=== PATIENT | male | born 1955 | race Caucasian/White ===

== ENCOUNTER 2017-07-27 15:23 | Observation (INO) | payer BC ==
[2017-07-27] MEDS ORDERED: HYDROmorphone 1 MG/ML Syringe IVPUSH ONE ×2 (15:40→17:59)
[2017-07-27] MEDS ORDERED: Ondansetron 4 MG/2 ML SDV IVPUSH ONE (15:40)
--- NOTE | 2017-07-27 15:41 | EDM.PDOC ---
<Sherry Fuller - Last Filed: 07/27/17 18:02> ED HPI GENERAL MEDICAL PROBLEM - General Chief Complaint: Flank Pain Stated Complaint: RT SIDE/BACK PAIN Time Seen by Provider: 07/27/17 15:41 Source of Information: Reports: Patient, Family History Limitations: Reports: No Limitations - History of Present Illness INITIAL COMMENTS - FREE TEXT/NARRATIVE: Pt arrived with severe rt flank pain. He was nauseated. This started yesterday afternoon. He has been very uncomfortable off and on since that time. Onset: Other ( started yesterday. ) Duration: Hour(s):, Getting Worse Location: Reports: Abdomen Quality: Reports: Sharp Associated Symptoms: Reports: Nausea/Vomiting, Other (Pt feels like something is swollen in the flank area. ) Right Flank Pain Score (Numeric/FACES): 10 - Related Data Allergies Allergy/AdvReac Type Severity Reaction Status Date / Time No Known Allergies Allergy Verified 04/13/13 22:25 Home Meds: Home Meds Allopurinol [Zyloprim] 300 mg PO DAILY 08/02/14 [History] Lisinopril 20 mg PO DAILY 07/27/17 [History] Naproxen 500 mg PO BID 07/27/17 [History] tiZANidine [Zanaflex] 4 mg PO DAILY 07/27/17 [History] Social & Family History - Tobacco Use Smoking Status *Q: Never Smoker Years of Tobacco use: 20 Second Hand Smoke Exposure: No - Alcohol Use Days Per Week of Alcohol Use: 0 - Recreational Drug Use Recreational Drug Use: No ED ROS GENERAL - Review of Systems Review Of Systems: See Below Constitutional: Reports: Diaphoresis, Decreased Appetite HEENT: Reports: No Symptoms Respiratory: Reports: No Symptoms Cardiovascular: Reports: No Symptoms Endocrine: Reports: No Symptoms GI/Abdominal: Reports: Abdominal Pain, Nausea : Reports: No Symptoms Musculoskeletal: Reports: No Symptoms Skin: Reports: No Symptoms ED EXAM, GI/ABD - Physical Exam Exam: See Below Text/Narrative:: Pt arrived with severe pain in the rt flank area. He was nauseated but had not vomited. This started yesterday afternoon. He has no chest pain. Exam Limited By: No Limitations General Appearance: Alert, Severe Distress, Other (pupils are equal and reactive. ) Ears: Normal TMs Nose: Normal Inspection Throat/Mouth: Normal Inspection Head: Atraumatic Neck: Normal Inspection Respiratory/Chest: No Respiratory Distress Cardiovascular: Regular Rate, Rhythm GI/Abdominal Exam: Other (pt does not have sig tenderness in the abdoman. ) (Male) Exam: Deferred Rectal (Males) Exam: Deferred Back Exam: Normal Inspection Extremities: Normal Inspection Neurological: Alert, Oriented, Normal Cognition Psychiatric: Normal Affect Course - Vital Signs Last Recorded V/S: Last Vital Signs Temp 96.2 F 07/27/17 15:37 Pulse 70 07/27/17 15:37 Resp 20 07/27/17 15:37 BP 101/65 07/27/17 15:37 Pulse Ox 96 07/27/17 15:37 - Orders/Labs/Meds Orders: Active Orders 24 hr Category Date Time Status Patient Status [ADT] Routine ADT 07/27/17 19:30 Active Height and Weight [RC] DAILY Care 07/27/17 19:30 Active Intake and Output [RC] PER UNIT ROUTINE Care 07/27/17 19:32 Active Up ad [place]ana [RC] ASDIRECTED Care 07/27/17 19:30 Active Vital Signs [RC] Q4H Care 07/27/17 19:30 Active Nothing per Oral After Midnight Diet [DIET] Diet 07/27/17 Breakfast Active Abdomen Ltd [US] Stat Exams 07/27/17 17:05 Taken Abdomen Pelvis wo Cont [CT] Stat Exams 07/27/17 16:08 Taken Cholescintigraphy [NM] Stat Exams 07/27/17 19:32 Ordered UA W/MICROSCOPIC [URIN] Urgent Lab 07/27/17 17:45 Ordered URIC ACID [CHEM] Stat Lab 07/27/17 15:51 Ordered Allopurinol [Zyloprim] Med 07/28/17 09:00 Ordered 300 mg PO DAILY Lisinopril [Prinivil] Med 07/28/17 09:00 Ordered 20 mg PO DAILY Naproxen [Naproxen] Med 07/27/17 21:00 Ordered 500 mg PO BID Sodium Chloride 0.9% [Normal Saline] 1,000 ml Med 07/27/17 15:45 Active IV ASDIRECTED Sodium Chloride 0.9% [Normal Saline] 1,000 ml Med 07/27/17 17:30 Active IV ASDIRECTED tiZANidine [Zanaflex] Med 07/28/17 09:00 Ordered 4 mg PO DAILY Resuscitation Status Routine Resus Stat 07/27/17 19:30 Ordered Medication Orders Allopurinol (Zyloprim) 300 mg PO DAILY [facility] Sodium Chloride (Normal Saline) 1,000 mls @ 999 mls/hr IV ASDIRECTED [facility] Last Admin: 07/27/17 15:50 Dose: 999 mls/hr Sodium Chloride (Normal Saline) 1,000 mls @ 999 mls/hr IV ASDIRECTED [facility] Last Admin: 07/27/17 17:46 Dose: 999 mls/hr Lisinopril (Prinivil) 20 mg PO DAILY [facility] Non-Formulary Medication (Naproxen [Naproxen]) 500 mg PO BID [facility] Tizanidine HCl (Zanaflex) 4 mg PO DAILY [facility] Labs: Laboratory Tests 07/27/17 07/27/17 07/27/17 Range/Units 15:50 15:51 15:51 WBC 10.9 (4.5-11.0) K/uL RBC 4.47 (4.30-5.90) M/uL Hgb 13.1 (12.0-15.0) g/dL Hct 38.7 L (40.0-54.0) % MCV 87 (80-98) fL MCH 29 (27-31) pg MCHC 34 (32-36) % Plt Count 218 (150-400) K/uL Neut % (Auto) 62 (36-66) % Lymph % (Auto) 28 (24-44) % [place] % (Auto) 9 H (2-6) % Eos % (Auto) 1 L (2-4) % Baso % (Auto) 0 (0-1) % Sodium 142 (140-148) mmol/L Potassium 3.5 L (3.6-5.2) mmol/L Chloride 106 (100-108) mmol/L Carbon Dioxide 26 (21-32) mmol/L Anion Gap 13.5 (5.0-14.0) mmol/L BUN 11 (7-18) mg/dL Creatinine 1.0 (0.8-1.3) mg/dL Est Cr Clr Drug Dosing 80.10 mL/min Estimated GFR (MDRD) > 60 (>60) Glucose 138 H (74-106) mg/dL Uric Acid (3.5-7.2) mg/dL Calcium 8.7 (8.5-10.1) mg/dL Total Bilirubin 0.5 D (0.2-1.0) mg/dL AST 27 D (15-37) U/L ALT 31 (12-78) U/L Alkaline Phosphatase 76 (46-116) U/L Troponin I (0.000-0.056) ng/mL C-Reactive Protein (0.0-0.3) mg/dL Total Protein 6.8 (6.4-8.2) g/dL Albumin 3.6 (3.4-5.0) g/dL Globulin 3.2 (2.3-3.5) g/dL Albumin/Globulin Ratio 1.1 L (1.2-2.2) Lipase 191 (73-393) U/L Urine Color Urine Appearance Urine pH (4.5-8.0) Ur Specific [place] (1.008-1.030) Urine Protein (NEGATIVE) mg/dL Urine Glucose (UA) (NEGATIVE) mg/dL Urine Ketones (NEGATIVE) mg/dL Urine Occult Blood (NEGATIVE) Urine Nitrite (NEGAITVE) Urine Bilirubin (NEGATIVE) Urine Urobilinogen (NORMAL) mg/dL Ur Leukocyte Esterase (NEGATIVE) Urine RBC (0-5) Urine WBC (0-5) Ur Epithelial Cells Amorphous Sediment Urine Bacteria Urine Mucus Urine Other 07/27/17 07/27/17 07/27/17 Range/Units 15:51 17:20 17:45 WBC (4.5-11.0) K/uL RBC (4.30-5.90) M/uL Hgb (12.0-15.0) g/dL Hct (40.0-54.0) % MCV (80-98) fL MCH (27-31) pg MCHC (32-36) % Plt Count (150-400) K/uL Neut % (Auto) (36-66) % Lymph % (Auto) (24-44) % [place] % (Auto) (2-6) % Eos % (Auto) (2-4) % Baso % (Auto) (0-1) % Sodium (140-148) mmol/L Potassium (3.6-5.2) mmol/L Chloride (100-108) mmol/L Carbon Dioxide (21-32) mmol/L Anion Gap (5.0-14.0) mmol/L BUN (7-18) mg/dL Creatinine (0.8-1.3) mg/dL Est Cr Clr Drug Dosing mL/min Estimated GFR (MDRD) (>60) Glucose (74-106) mg/dL Uric Acid 4.2 (3.5-7.2) mg/dL Calcium (8.5-10.1) mg/dL Total Bilirubin (0.2-1.0) mg/dL AST (15-37) U/L ALT (12-78) U/L Alkaline Phosphatase (46-116) U/L Troponin I (0.000-0.056) ng/mL C-Reactive Protein 0.34 H (0.0-0.3) mg/dL Total Protein (6.4-8.2) g/dL Albumin (3.4-5.0) g/dL Globulin (2.3-3.5) g/dL Albumin/Globulin Ratio (1.2-2.2) Lipase (73-393) U/L Urine Color Yellow Urine Appearance Cloudy Urine pH 5.0 (4.5-8.0) Ur Specific [place] 1.020 (1.008-1.030) Urine Protein Negative (NEGATIVE) mg/dL Urine Glucose (UA) Normal (NEGATIVE) mg/dL Urine Ketones 15 H (NEGATIVE) mg/dL Urine Occult Blood Large (NEGATIVE) Urine Nitrite Negative (NEGAITVE) Urine Bilirubin Small (NEGATIVE) Urine Urobilinogen 1 (NORMAL) mg/dL Ur Leukocyte Esterase Negative (NEGATIVE) Urine RBC 75-100 H (0-5) Urine WBC 0-5 (0-5) Ur Epithelial Cells Rare Amorphous Sediment Not seen Urine Bacteria Rare Urine Mucus Few Urine Other 07/27/17 Range/Units 18:55 WBC (4.5-11.0) K/uL RBC (4.30-5.90) M/uL Hgb (12.0-15.0) g/dL Hct (40.0-54.0) % MCV (80-98) fL MCH (27-31) pg MCHC (32-36) % Plt Count (150-400) K/uL Neut % (Auto) (36-66) % Lymph % (Auto) (24-44) % [place] % (Auto) (2-6) % Eos % (Auto) (2-4) % Baso % (Auto) (0-1) % Sodium (140-148) mmol/L Potassium (3.6-5.2) mmol/L Chloride (100-108) mmol/L Carbon Dioxide (21-32) mmol/L Anion Gap (5.0-14.0) mmol/L BUN (7-18) mg/dL Creatinine (0.8-1.3) mg/dL Est Cr Clr Drug Dosing mL/min Estimated GFR (MDRD) (>60) Glucose (74-106) mg/dL Uric Acid (3.5-7.2) mg/dL Calcium (8.5-10.1) mg/dL Total Bilirubin (0.2-1.0) mg/dL AST (15-37) U/L ALT (12-78) U/L Alkaline Phosphatase (46-116) U/L Troponin I < 0.017 (0.000-0.056) ng/mL C-Reactive Protein (0.0-0.3) mg/dL Total Protein (6.4-8.2) g/dL Albumin (3.4-5.0) g/dL Globulin (2.3-3.5) g/dL Albumin/Globulin Ratio (1.2-2.2) Lipase (73-393) U/L Urine Color Urine Appearance Urine pH (4.5-8.0) Ur Specific [place] (1.008-1.030) Urine Protein (NEGATIVE) mg/dL Urine Glucose (UA) (NEGATIVE) mg/dL Urine Ketones (NEGATIVE) mg/dL Urine Occult Blood (NEGATIVE) Urine Nitrite (NEGAITVE) Urine Bilirubin (NEGATIVE) Urine Urobilinogen (NORMAL) mg/dL Ur Leukocyte Esterase (NEGATIVE) Urine RBC (0-5) Urine WBC (0-5) Ur Epithelial Cells Amorphous Sediment Urine Bacteria Urine Mucus Urine Other Meds: Medications Generic Name Dose Route Start Last Admin Trade Name Freq PRN Reason Stop Dose Admin Allopurinol 300 mg 07/28/17 09:00 Zyloprim PO DAILY EM Sodium Chloride 1,000 mls @ 999 mls/hr 07/27/17 15:45 07/27/17 15:50 Normal Saline IV 999 mls/hr ASDIRECTED EM Administration Sodium Chloride 1,000 mls @ 999 mls/hr 07/27/17 17:30 07/27/17 17:46 Normal Saline IV 999 mls/hr ASDIRECTED EM Administration Lisinopril 20 mg 07/28/17 09:00 Prinivil PO DAILY EM Non-Formulary Medication 500 mg 07/27/17 21:00 Naproxen [Naproxen] PO BID EM Tizanidine HCl 4 mg 07/28/17 09:00 Zanaflex PO DAILY EM Discontinued Medications Generic Name Dose Route Start Last Admin Trade Name Elizabeth PRN Reason Stop Dose Admin Hydromorphone HCl 1 mg 07/27/17 15:50 07/27/17 15:48 Dilaudid IVPUSH 07/27/17 15:51 1 mg ONETIME ONE Administration Hydromorphone HCl 0.5 mg 07/27/17 16:08 07/27/17 16:11 Dilaudid IVPUSH 07/27/17 16:09 0.5 mg ONETIME ONE Administration Hydromorphone HCl 1 mg 07/27/17 17:59 07/27/17 18:03 Dilaudid IVPUSH 07/27/17 18:00 1 mg ONETIME ONE Administration Ondansetron HCl 4 mg 07/27/17 15:40 07/27/17 15:49 Zofran IVPUSH 07/27/17 15:41 4 mg ONETIME ONE Administration - Re-Assessments/Exams Free Text/Narrative Re-Assessment/Exam: 07/27/17 17:25 pt does not have a elevated wbc. His liver enzymes are normal. His lipase is normal. A cat scan of the abdoman without contrast was obtained which did not show a kidney stone. He has alot of stones in his gallbladder. 07/27/17 17:55 Pt has the sensation that he has something swollen in the area. He is more comfortable at this time but still feels swollen. 07/27/17 17:58 Departure - Departure Disposition: Admitted As Inpatient 66 Clinical Impression: Right flank pain - Discharge Information Referrals: Nickolas Bush Sr, MD [Primary Care Provider] - Forms: ED Department Discharge - My Orders Last 24 Hours: My Active Orders 07/27/17 19:30 Patient Status [ADT] Routine Height and Weight [RC] DAILY Up ad Dayana [RC] ASDIRECTED Vital Signs [RC] Q4H Resuscitation Status Routine 07/27/17 19:32 Intake and Output [RC] PER UNIT ROUTINE Cholescintigraphy [NM] Stat 07/27/17 21:00 Naproxen [Naproxen] 500 mg PO BID 07/27/17 Breakfast Nothing per Oral After Midnight Diet [DIET] 07/28/17 09:00 Allopurinol [Zyloprim] 300 mg PO DAILY Lisinopril [Prinivil] 20 mg PO DAILY tiZANidine [Zanaflex] 4 mg PO DAILY - Assessment/Plan Last 24 Hours: My Active Orders 07/27/17 19:30 Patient Status [ADT] Routine Height and Weight [RC] DAILY Up ad Dayana [RC] ASDIRECTED Vital Signs [RC] Q4H Resuscitation Status Routine 07/27/17 19:32 Intake and Output [RC] PER UNIT ROUTINE Cholescintigraphy [NM] Stat 07/27/17 21:00 Naproxen [Naproxen] 500 mg PO BID 07/27/17 Breakfast Nothing per Oral After Midnight Diet [DIET] 07/28/17 09:00 Allopurinol [Zyloprim] 300 mg PO DAILY Lisinopril [Prinivil] 20 mg PO DAILY tiZANidine [Zanaflex] 4 mg PO DAILY <OfficerAngel - Last Filed: 07/27/17 19:36> Departure - Departure Time of Disposition: 19:35 Condition: Fair - Assessment/Plan Assessment:: Assessment Acuity = acute Site and laterality = right flank pain complicated patient with known cholelithiasis and thickened gallbladder wall Etiology = unclear etiology concern for gallbladder dysfunction Manifestations = nausea Location of injury = Home Lab values = CBC, CMP, troponin, uric acid unremarkable urinalysis does reveal 75 200 rbc's consistent hematuria, CT scan described multiple gallstones, ultrasound shows thickened gallbladder wall at greater than 4 mm with sludge Plan Called discussed case with Dr. Bush his primary care provider who agreed, and evaluate him in the hospital for admission and further evaluation, plan for HIDA scan nuclear medicine in the morning This note was dictated using [employer] voice recognition software please call with any questions on syntax or erick.
[2017-07-27] MEDS ORDERED: Sodium Chloride 0.9% 1,000 ML IV SCH ×3 (15:45→21:00)
[2017-07-27] MEDS ORDERED: HYDROmorphone 0.5 MG/0.5 ML Syringe IVPUSH ONE ×2 (15:50→16:08)
[2017-07-27] MEDS ORDERED: Ondansetron 4 MG Tab.DIS PO PRN (20:14)
--- NOTE | 2017-07-27 20:26 | PCM.HP ---
H&P History of Present Illness - General Date of Service: 07/27/17 Admit Problem/Dx: Admission Diagnosis/Problem Admission Diagnosis/Problem Abdominal pain - History of Present Illness Initial Comments - Free Text/Narative: Sudden onset of pain in the lower right back yesterday made worse by sitting with no direct correlation to eating, passing urine or stools. Pain lasted one hour the 20-30 mins then pain would dontae down. He had no change in the color of stools or urine. Never had a similar problem before. He did get relief from pain after 3 mg of Dilaudid while in the ER. Location: Reports: Back Quality: Reports: Dull Severity: Severe Right Flank Pain Score (Numeric/FACES): 10 - Related Data Allergies/Adverse Reactions: Allergies Allergy/AdvReac Type Severity Reaction Status Date / Time No Known Allergies Allergy Verified 04/13/13 22:25 Home Medications: Home Meds Allopurinol [Zyloprim] 300 mg PO DAILY 08/02/14 [History] Lisinopril 20 mg PO DAILY 07/27/17 [History] Naproxen 500 mg PO BID 07/27/17 [History] tiZANidine [Zanaflex] 4 mg PO DAILY 07/27/17 [History] Past Medical History Cardiovascular History: Reports: Hypertension Social & Family History - Tobacco Use Smoking Status *Q: Never Smoker Years of Tobacco use: 20 Second Hand Smoke Exposure: No - Caffeine Use Caffeine Use: Reports: Coffee - Alcohol Use Days Per Week of Alcohol Use: 0 - Recreational Drug Use Recreational Drug Use: No H&P Review of Systems - Review of Systems: Review Of Systems: See Below General: Reports: Other (Had hot flashes) HEENT: Reports: No Symptoms Pulmonary: Reports: No Symptoms Cardiovascular: Reports: No Symptoms Gastrointestinal: Reports: Abdominal Pain, Decreased Appetite Genitourinary: Reports: No Symptoms Musculoskeletal: Reports: Back Pain Skin: Reports: No Symptoms Psychiatric: Reports: No Symptoms Neurological: Reports: No Symptoms Exam - Exam Exam: See Below - Vital Signs Vital Signs: Last Vital Signs Temp 98.2 F 07/27/17 19:36 Pulse 72 07/27/17 19:36 Resp 16 07/27/17 19:36 BP 131/62 07/27/17 19:36 Pulse Ox 95 07/27/17 19:36 Weight: 323 lb 10.217 oz - Exam General: Alert HEENT: PERRLA, Hearing Intact, Mucosa Moist & [place], Nares Patent, Normal Nasal Septum, Posterior Pharynx Clear, Conjunctiva Clear, EOMI, EACs Clear, TMs Clear Neck: Supple Lungs: Clear to Auscultation, Normal Respiratory Effort Cardiovascular: Regular Rate, Regular Rhythm GI/Abdominal Exam: Normal Bowel Sounds, Soft, Non-Tender, No Organomegaly, No Distention, No Abnormal Bruit, No Mass, Pelvis Stable Back Exam: Muscle Spasm, Other (Pain to deep pressure in the lower right back just above the pelvis) Extremities: Normal Inspection, Normal Range of Motion, Non-Tender, No Pedal Edema, Normal Capillary Refill Peripheral Pulses: 1+: Radial (L), Radial (R) Skin: Warm Neurological: Cranial Nerves Intact, Reflexes Equal Bilateral Neuro Extensive - Mental Status: Alert, Oriented x3, Normal Mood/Affect, Normal Cognition Neuro Extensive - Motor, Sensory, Reflexes: CN II-XII Intact, Normal Gait, Normal Reflexes - Patient Data Lab Results Last 24 hrs: Laboratory Results - last 24 hr 07/27/17 07/27/17 07/27/17 Range/Units 15:50 15:51 15:51 WBC 10.9 (4.5-11.0) K/uL RBC 4.47 (4.30-5.90) M/uL Hgb 13.1 (12.0-15.0) g/dL Hct 38.7 L (40.0-54.0) % MCV 87 (80-98) fL MCH 29 (27-31) pg MCHC 34 (32-36) % Plt Count 218 (150-400) K/uL Neut % (Auto) 62 (36-66) % Lymph % (Auto) 28 (24-44) % [place] % (Auto) 9 H (2-6) % Eos % (Auto) 1 L (2-4) % Baso % (Auto) 0 (0-1) % Sodium 142 (140-148) mmol/L Potassium 3.5 L (3.6-5.2) mmol/L Chloride 106 (100-108) mmol/L Carbon Dioxide 26 (21-32) mmol/L Anion Gap 13.5 (5.0-14.0) mmol/L BUN 11 (7-18) mg/dL Creatinine 1.0 (0.8-1.3) mg/dL Est Cr Clr Drug Dosing 80.10 mL/min Estimated GFR (MDRD) > 60 (>60) Glucose 138 H (74-106) mg/dL Uric Acid (3.5-7.2) mg/dL Calcium 8.7 (8.5-10.1) mg/dL Total Bilirubin 0.5 D (0.2-1.0) mg/dL AST 27 D (15-37) U/L ALT 31 (12-78) U/L Alkaline Phosphatase 76 (46-116) U/L Troponin I (0.000-0.056) ng/mL C-Reactive Protein (0.0-0.3) mg/dL Total Protein 6.8 (6.4-8.2) g/dL Albumin 3.6 (3.4-5.0) g/dL Globulin 3.2 (2.3-3.5) g/dL Albumin/Globulin Ratio 1.1 L (1.2-2.2) Lipase 191 (73-393) U/L Urine Color Urine Appearance Urine pH (4.5-8.0) Ur Specific [place] (1.008-1.030) Urine Protein (NEGATIVE) mg/dL Urine Glucose (UA) (NEGATIVE) mg/dL Urine Ketones (NEGATIVE) mg/dL Urine Occult Blood (NEGATIVE) Urine Nitrite (NEGAITVE) Urine Bilirubin (NEGATIVE) Urine Urobilinogen (NORMAL) mg/dL Ur Leukocyte Esterase (NEGATIVE) Urine RBC (0-5) Urine WBC (0-5) Ur Epithelial Cells Amorphous Sediment Urine Bacteria Urine Mucus Urine Other 07/27/17 07/27/17 07/27/17 Range/Units 15:51 17:20 17:45 WBC (4.5-11.0) K/uL RBC (4.30-5.90) M/uL Hgb (12.0-15.0) g/dL Hct (40.0-54.0) % MCV (80-98) fL MCH (27-31) pg MCHC (32-36) % Plt Count (150-400) K/uL Neut % (Auto) (36-66) % Lymph % (Auto) (24-44) % [place] % (Auto) (2-6) % Eos % (Auto) (2-4) % Baso % (Auto) (0-1) % Sodium (140-148) mmol/L Potassium (3.6-5.2) mmol/L Chloride (100-108) mmol/L Carbon Dioxide (21-32) mmol/L Anion Gap (5.0-14.0) mmol/L BUN (7-18) mg/dL Creatinine (0.8-1.3) mg/dL Est Cr Clr Drug Dosing mL/min Estimated GFR (MDRD) (>60) Glucose (74-106) mg/dL Uric Acid 4.2 (3.5-7.2) mg/dL Calcium (8.5-10.1) mg/dL Total Bilirubin (0.2-1.0) mg/dL AST (15-37) U/L ALT (12-78) U/L Alkaline Phosphatase (46-116) U/L Troponin I (0.000-0.056) ng/mL C-Reactive Protein 0.34 H (0.0-0.3) mg/dL Total Protein (6.4-8.2) g/dL Albumin (3.4-5.0) g/dL Globulin (2.3-3.5) g/dL Albumin/Globulin Ratio (1.2-2.2) Lipase (73-393) U/L Urine Color Yellow Urine Appearance Cloudy Urine pH 5.0 (4.5-8.0) Ur Specific [place] 1.020 (1.008-1.030) Urine Protein Negative (NEGATIVE) mg/dL Urine Glucose (UA) Normal (NEGATIVE) mg/dL Urine Ketones 15 H (NEGATIVE) mg/dL Urine Occult Blood Large (NEGATIVE) Urine Nitrite Negative (NEGAITVE) Urine Bilirubin Small (NEGATIVE) Urine Urobilinogen 1 (NORMAL) mg/dL Ur Leukocyte Esterase Negative (NEGATIVE) Urine RBC 75-100 H (0-5) Urine WBC 0-5 (0-5) Ur Epithelial Cells Rare Amorphous Sediment Not seen Urine Bacteria Rare Urine Mucus Few Urine Other 07/27/17 Range/Units 18:55 WBC (4.5-11.0) K/uL RBC (4.30-5.90) M/uL Hgb (12.0-15.0) g/dL Hct (40.0-54.0) % MCV (80-98) fL MCH (27-31) pg MCHC (32-36) % Plt Count (150-400) K/uL Neut % (Auto) (36-66) % Lymph % (Auto) (24-44) % [place] % (Auto) (2-6) % Eos % (Auto) (2-4) % Baso % (Auto) (0-1) % Sodium (140-148) mmol/L Potassium (3.6-5.2) mmol/L Chloride (100-108) mmol/L Carbon Dioxide (21-32) mmol/L Anion Gap (5.0-14.0) mmol/L BUN (7-18) mg/dL Creatinine (0.8-1.3) mg/dL Est Cr Clr Drug Dosing mL/min Estimated GFR (MDRD) (>60) Glucose (74-106) mg/dL Uric Acid (3.5-7.2) mg/dL Calcium (8.5-10.1) mg/dL Total Bilirubin (0.2-1.0) mg/dL AST (15-37) U/L ALT (12-78) U/L Alkaline Phosphatase (46-116) U/L Troponin I < 0.017 (0.000-0.056) ng/mL C-Reactive Protein (0.0-0.3) mg/dL Total Protein (6.4-8.2) g/dL Albumin (3.4-5.0) g/dL Globulin (2.3-3.5) g/dL Albumin/Globulin Ratio (1.2-2.2) Lipase (73-393) U/L Urine Color Urine Appearance Urine pH (4.5-8.0) Ur Specific [place] (1.008-1.030) Urine Protein (NEGATIVE) mg/dL Urine Glucose (UA) (NEGATIVE) mg/dL Urine Ketones (NEGATIVE) mg/dL Urine Occult Blood (NEGATIVE) Urine Nitrite (NEGAITVE) Urine Bilirubin (NEGATIVE) Urine Urobilinogen (NORMAL) mg/dL Ur Leukocyte Esterase (NEGATIVE) Urine RBC (0-5) Urine WBC (0-5) Ur Epithelial Cells Amorphous Sediment Urine Bacteria Urine Mucus Urine Other Result Diagrams: 07/27/17 15:51 07/27/17 15:51 Problem List Initiated/Reviewed/Updated: Yes Orders Last 24hrs: Active Orders 24 hr Category Date Time Status Patient Status [ADT] Routine ADT 07/27/17 19:30 Active Patient Status [ADT] Routine ADT 07/27/17 20:15 Ordered Height and Weight [RC] DAILY Care 07/27/17 19:30 Active Intake and Output [RC] PER UNIT ROUTINE Care 07/27/17 19:32 Active Oxygen Therapy [RC] PRN Care 07/27/17 20:15 Ordered Up ad Dayana [RC] ASDIRECTED Care 07/27/17 19:30 Active VTE/DVT Education [RC] Per Unit Routine Care 07/27/17 20:15 Ordered Vital Signs [RC] Q4H Care 07/27/17 19:30 Active Vital Signs [RC] Q4H Care 07/27/17 20:15 Ordered Nothing per Oral After Midnight Diet [DIET] Diet 07/27/17 Breakfast Active Abdomen Ltd [US] Stat Exams 07/27/17 17:05 Taken Abdomen Pelvis wo Cont [CT] Stat Exams 07/27/17 16:08 Taken Cholescintigraphy [NM] Stat Exams 07/27/17 19:32 Ordered Lumbar Spine Comp wo Cont [MR] Routine Exams 07/27/17 20:19 Ordered UA W/MICROSCOPIC [URIN] Urgent Lab 07/27/17 17:45 Ordered URIC ACID [CHEM] Stat Lab 07/27/17 15:51 Ordered Allopurinol [Zyloprim] Med 07/28/17 09:00 Active 300 mg PO DAILY Lisinopril [Prinivil] Med 07/28/17 09:00 Active 20 mg PO DAILY Naproxen [Naprosyn] Med 07/27/17 21:00 Active 500 mg PO BID Ondansetron [Zofran ODT] Med 07/27/17 20:14 Ordered 4 mg PO Q4H PRN Sodium Chloride 0.9% [Normal Saline] 1,000 ml Med 07/27/17 15:45 Active IV ASDIRECTED Sodium Chloride 0.9% [Normal Saline] 1,000 ml Med 07/27/17 17:30 Active IV ASDIRECTED tiZANidine [Zanaflex] Med 07/28/17 09:00 Active 4 mg PO DAILY Resuscitation Status Routine Resus Stat 07/27/17 19:30 Ordered Medication Orders Allopurinol (Zyloprim) 300 mg PO DAILY EM Sodium Chloride (Normal Saline) 1,000 mls @ 999 mls/hr IV ASDIRECTED [facility] Last Admin: 07/27/17 15:50 Dose: 999 mls/hr Sodium Chloride (Normal Saline) 1,000 mls @ 999 mls/hr IV ASDIRECTED [facility] Last Admin: 07/27/17 17:46 Dose: 999 mls/hr Lisinopril (Prinivil) 20 mg PO DAILY [facility] Naproxen (Naprosyn) 500 mg PO BID [facility] Ondansetron HCl (Zofran Odt) 4 mg PO Q4H PRN PRN Reason: Nausea able to take PO Tizanidine HCl (Zanaflex) 4 mg PO DAILY [facility] Assessment/Plan Comment:: Assessment/Plan: #1. Low back pain Chronic and acute pain Will admit for pain control and do an MRI the morning. Labs including a CBC and CMP are not diagnostic. CT and Ultrasound did not reveal a diagnosis. The gallbladder does have stones but there is no pain to palpation over the gallbladder area and radiological investigations showed no significant evidence of cholecystitis. I feel that this most likely back and the MRI should give us the report for confirmation. If this is not found we will consider other evaluations. I will provide pain control by a [employer] pump, Dilaudid. #2. Hypertension: stable at present #3. History of Gout. #4. Obesity:
[2017-07-27] MEDS ORDERED: Naloxone 0.4 MG/ML SDV IVPUSH PRN (20:55)
[2017-07-27] MEDS ORDERED: HYDROmorphone/Normal Saline 15 MG/30 ML PCA IV SCH (21:00)
[2017-07-27] MEDS: Naproxen 250 MG Tab PO SCH (21:13)
[2017-07-28] MEDS ORDERED: Allopurinol 300 MG Tab PO SCH (09:00)
[2017-07-28] MEDS ORDERED: tiZANidine 4 MG Tab PO SCH (09:00)
[2017-07-28] MEDS ORDERED: Lisinopril 20 MG Tab PO SCH (09:00)
[2017-07-28] MEDS: LORazepam 0.5 MG Tab PO PRN ×2 (09:41→10:14)
--- NOTE | 2017-07-28 10:51 | US ---
Abdomen Ltd CLINICAL HISTORY: Abdominal pain, gallstones COMPARISON: CT abdomen 07/27/2017. FINDINGS: The liver is free of mass or biliary dilatation. It is enlarged measuring over 17 cm in sobeida gth. There is normal parenchymal echogenicity. There is a 2.7 cm cyst in the left lobe.The gallbladde r contains multiple stones. The common duct measures 8 mm. The pancreas is obscured. The inferior ibeth a cava is scattered.. IMPRESSION: Limited acoustic window due to moderate bowel gas Cholelithiasis The common bile duct is borderline dilated at 8 mm Hepatomegaly
[2017-07-28] MEDS ORDERED: LORazepam 0.5 MG Tab PO PRN (10:58)
[2017-07-28] MEDS: Naproxen 250 MG Tab PO SCH (11:29)
[2017-07-28 14:57] VITALS: BP 131/76
--- NOTE | 2017-07-28 17:58 | PCM.PN ---
- General Info Date of Service: 07/28/17 Subjective Update: He was unable to tolerate the MRI so will discharge him and send him to an open MRI tomorrow. He feels good presently He has used one dose of Dilaudid this PM as the pain begun to return. Functional Status: Reports: Pain Controlled - Review of Systems General: Reports: No Symptoms HEENT: Reports: No Symptoms Pulmonary: Reports: No Symptoms Cardiovascular: Reports: No Symptoms Gastrointestinal: Reports: No Symptoms Genitourinary: Reports: No Symptoms Musculoskeletal: Reports: No Symptoms Skin: Reports: No Symptoms Neurological: Reports: No Symptoms Psychiatric: Reports: No Symptoms - Patient Data Vitals - Most Recent: Last Vital Signs Temp 98 F 07/28/17 14:55 Pulse 79 07/28/17 14:55 Resp 16 07/28/17 14:55 BP 131/76 07/28/17 14:55 Pulse Ox 97 07/28/17 14:55 Weight - Most Recent: 323 lb 10.217 oz I&O - Last 24 Hours: Intake & Output 07/28/17 07/28/17 07/28/17 06:59 14:59 22:59 Intake Total 120 Balance 120 Lab Results Last 24 Hours: Laboratory Results - last 24 hr 07/27/17 07/27/17 Range/Units 17:45 18:55 Troponin I < 0.017 (0.000-0.056) ng/mL Urine Color Yellow Urine Appearance Cloudy Urine pH 5.0 (4.5-8.0) Ur Specific [place] 1.020 (1.008-1.030) Urine Protein Negative (NEGATIVE) mg/dL Urine Glucose (UA) Normal (NEGATIVE) mg/dL Urine Ketones 15 H (NEGATIVE) mg/dL Urine Occult Blood Large (NEGATIVE) Urine Nitrite Negative (NEGAITVE) Urine Bilirubin Small (NEGATIVE) Urine Urobilinogen 1 (NORMAL) mg/dL Ur Leukocyte Esterase Negative (NEGATIVE) Urine RBC 75-100 H (0-5) Urine WBC 0-5 (0-5) Ur Epithelial Cells Rare Amorphous Sediment Not seen Urine Bacteria Rare Urine Mucus Few Urine Other Med Orders - Current: Current Medications Allopurinol (Zyloprim) 300 mg PO DAILY [facility] Last Admin: 07/28/17 11:30 Dose: 300 mg Hydromorphone HCl (Dilaudid Needle Polisher 15 Mg In Ns 30 Ml) 15 mg IV ASDIRECTED EM; Protocol Last Admin: 07/27/17 21:14 Dose: 15 mg Sodium Chloride (Normal Saline) 1,000 mls @ 0 mls/hr IV ASDIRECTED [facility] Last Admin: 07/27/17 21:17 Dose: 25 mls/hr Lisinopril (Prinivil) 20 mg PO DAILY [facility] Last Admin: 07/28/17 11:29 Dose: 20 mg Lorazepam (Ativan) 0 mg PO ASDIRECTED PRN PRN Reason: Anxiety Last Admin: 07/28/17 10:14 Dose: 0.5 mg Lorazepam (Ativan) 0.5 mg PO Q1H PRN PRN Reason: Anxiety Naloxone HCl (Narcan) 0.4 mg IVPUSH Q2M PRN PRN Reason: Respiratory Distress Naproxen (Naprosyn) 500 mg PO BID [facility] Last Admin: 07/28/17 11:29 Dose: 500 mg Ondansetron HCl (Zofran Odt) 4 mg PO Q4H PRN PRN Reason: Nausea able to take PO Tizanidine HCl (Zanaflex) 4 mg PO DAILY [facility] Last Admin: 07/28/17 11:30 Dose: 4 mg Discontinued Medications Hydromorphone HCl (Dilaudid) 1 mg IVPUSH ONETIME ONE Stop: 07/27/17 15:51 Last Admin: 07/27/17 15:48 Dose: 1 mg Hydromorphone HCl (Dilaudid) 0.5 mg IVPUSH ONETIME ONE Stop: 07/27/17 16:09 Last Admin: 07/27/17 16:11 Dose: 0.5 mg Hydromorphone HCl (Dilaudid) 1 mg IVPUSH ONETIME ONE Stop: 07/27/17 18:00 Last Admin: 07/27/17 18:03 Dose: 1 mg Sodium Chloride (Normal Saline) 1,000 mls @ 999 mls/hr IV ASDIRECTED [facility] Last Admin: 07/27/17 15:50 Dose: 999 mls/hr Sodium Chloride (Normal Saline) 1,000 mls @ 999 mls/hr IV ASDIRECTED [facility] Last Admin: 07/27/17 17:46 Dose: 999 mls/hr Ondansetron HCl (Zofran) 4 mg IVPUSH ONETIME ONE Stop: 07/27/17 15:41 Last Admin: 07/27/17 15:49 Dose: 4 mg - Exam General: Alert, Oriented Neck: Supple Lungs: Clear to Auscultation, Normal Respiratory Effort Cardiovascular: Regular Rate, Regular Rhythm GI/Abdominal Exam: Normal Bowel Sounds, Soft, Non-Tender, No Organomegaly, No Distention, No Abnormal Bruit, No Mass, Pelvis Stable Back Exam: Other (pain lower right back ) Peripheral Pulses: 1+: Radial (L), Radial (R) Skin: Warm, Dry, Intact Neurological: No New Focal Deficit Psy/Mental Status: Alert, Normal Affect, Normal Mood - Problem List Review Problem List Initiated/Reviewed/Updated: Yes - My Orders Last 24 Hours: My Active Orders 07/27/17 20:14 Ondansetron [Zofran ODT] 4 mg PO Q4H PRN 07/27/17 20:15 Patient Status [ADT] Routine Oxygen Therapy [RC] PRN VTE/DVT Education [RC] Per Unit Routine 07/27/17 20:19 Lumbar Spine Comp wo Cont [MR] Routine 07/27/17 20:32 Sequential Compression Device [OM.PC] Routine 07/27/17 20:35 LORazepam [Ativan] 0 mg PO ASDIRECTED PRN 07/27/17 20:55 Communication Order [RC] STAT Notify Provider [RC] PRN FLIGHT PARAMEDIC Record [RC] PER UNIT ROUTINE Pulse Oximetry [RC] CONTINUOUS Naloxone [Narcan] 0.4 mg IVPUSH Q2M PRN Medication Discontinuation Instructions [OM.PC] Stat 07/27/17 21:00 HYDROmorphone/Normal Saline [Dilaudid FLIGHT PARAMEDIC 15 MG in NS 30 ML] 15 mg IV ASDIRECTED Sodium Chloride 0.9% [Normal Saline] 1,000 ml IV ASDIRECTED 07/28/17 10:58 LORazepam [Ativan] 0.5 mg PO Q1H PRN 07/28/17 Lunch Regular Diet [DIET] - Plan Plan:: Assessment/Plan: #1. Low back pain Chronic and acute pain Pain is better but stable. Will send to [facility] for an open MRI exam of the low back. #2. Hypertension: stable at present #3. History of Gout. #4. Obesity: Plan home today.
--- NOTE | 2017-07-28 18:04 | PCM.DCSUM1 ---
Discharge Summary - Hospital Course Brief History: Admitted to control pain and get a diagnosis. His pain was very severe and controlled in the ER with Dilaudid for pain. CT and U/S was not diagnostic in the ER. - Discharge Data Discharge Date: 07/28/17 Discharge Disposition: Home, Self-Care 01 Condition: Fair - Patient Summary/Data Hospital Course: Pain was controlled with a [employer]KER Dilaudid. We attempted to get an MRI but was able to get into the tube. Will discharge tonight and send for an open MRI tomorrow if there is an open spot. Will give Hydrocodone for pain. - Patient Instructions Diet: Heart Healthy Diet Activity: As Tolerated - Discharge Plan Home Medications: Home Meds Allopurinol [Zyloprim] 300 mg PO DAILY 08/02/14 [History] Lisinopril 20 mg PO DAILY 07/27/17 [History] Naproxen 500 mg PO BID 07/27/17 [History] tiZANidine [Zanaflex] 4 mg PO DAILY 07/27/17 [History] Forms: ED Department Discharge Referrals: Nickolas Bush Sr, MD [Primary Care Provider] - - Discharge Summary/Plan Comment DC Time >30 min.: No Discharge Summary/Plan Comment: Assessment/Plan: #1. Low back pain Chronic and acute pain Pain is better but stable. Will send to [place] for an open MRI exam of the low back. #2. Hypertension: stable at present #3. History of Gout. #4. Obesity: Plan home today. - General Info Date of Service: 07/28/17 Functional Status: Reports: Pain Controlled - Review of Systems General: Reports: No Symptoms HEENT: Reports: No Symptoms Pulmonary: Reports: No Symptoms Cardiovascular: Reports: No Symptoms Gastrointestinal: Reports: No Symptoms Genitourinary: Reports: No Symptoms Musculoskeletal: Reports: No Symptoms Skin: Reports: No Symptoms Neurological: Reports: No Symptoms Psychiatric: Reports: No Symptoms - Patient Data Vitals - Most Recent: Last Vital Signs Temp 98 F 07/28/17 14:55 Pulse 79 07/28/17 14:55 Resp 16 07/28/17 14:55 BP 131/76 07/28/17 14:55 Pulse Ox 97 07/28/17 14:55 Weight - Most Recent: 323 lb 10.217 oz I&O - Last 24 hours: Intake & Output 07/28/17 07/28/17 07/28/17 06:59 14:59 22:59 Intake Total 120 Balance 120 Lab Results - Last 24 hrs: Laboratory Results - last 24 hr 07/27/17 07/27/17 Range/Units 17:45 18:55 Troponin I < 0.017 (0.000-0.056) ng/mL Urine Color Yellow Urine Appearance Cloudy Urine pH 5.0 (4.5-8.0) Ur Specific [address] 1.020 (1.008-1.030) Urine Protein Negative (NEGATIVE) mg/dL Urine Glucose (UA) Normal (NEGATIVE) mg/dL Urine Ketones 15 H (NEGATIVE) mg/dL Urine Occult Blood Large (NEGATIVE) Urine Nitrite Negative (NEGAITVE) Urine Bilirubin Small (NEGATIVE) Urine Urobilinogen 1 (NORMAL) mg/dL Ur Leukocyte Esterase Negative (NEGATIVE) Urine RBC 75-100 H (0-5) Urine WBC 0-5 (0-5) Ur Epithelial Cells Rare Amorphous Sediment Not seen Urine Bacteria Rare Urine Mucus Few Urine Other Med Orders - Current: Current Medications Allopurinol (Zyloprim) 300 mg PO DAILY [facility] Last Admin: 07/28/17 11:30 Dose: 300 mg Hydromorphone HCl (Dilaudid Sterile Tech 15 Mg In Ns 30 Ml) 15 mg IV ASDIRECTED [facility]; Protocol Last Admin: 07/27/17 21:14 Dose: 15 mg Sodium Chloride (Normal Saline) 1,000 mls @ 0 mls/hr IV ASDIRECTED [facility] Last Admin: 07/27/17 21:17 Dose: 25 mls/hr Lisinopril (Prinivil) 20 mg PO DAILY [facility] Last Admin: 07/28/17 11:29 Dose: 20 mg Lorazepam (Ativan) 0 mg PO ASDIRECTED PRN PRN Reason: Anxiety Last Admin: 07/28/17 10:14 Dose: 0.5 mg Lorazepam (Ativan) 0.5 mg PO Q1H PRN PRN Reason: Anxiety Naloxone HCl (Narcan) 0.4 mg IVPUSH Q2M PRN PRN Reason: Respiratory Distress Naproxen (Naprosyn) 500 mg PO BID [facility] Last Admin: 07/28/17 11:29 Dose: 500 mg Ondansetron HCl (Zofran Odt) 4 mg PO Q4H PRN PRN Reason: Nausea able to take PO Tizanidine HCl (Zanaflex) 4 mg PO DAILY [facility] Last Admin: 07/28/17 11:30 Dose: 4 mg Discontinued Medications Hydromorphone HCl (Dilaudid) 1 mg IVPUSH ONETIME ONE Stop: 07/27/17 15:51 Last Admin: 07/27/17 15:48 Dose: 1 mg Hydromorphone HCl (Dilaudid) 0.5 mg IVPUSH ONETIME ONE Stop: 07/27/17 16:09 Last Admin: 07/27/17 16:11 Dose: 0.5 mg Hydromorphone HCl (Dilaudid) 1 mg IVPUSH ONETIME ONE Stop: 07/27/17 18:00 Last Admin: 07/27/17 18:03 Dose: 1 mg Sodium Chloride (Normal Saline) 1,000 mls @ 999 mls/hr IV ASDIRECTED [facility] Last Admin: 07/27/17 15:50 Dose: 999 mls/hr Sodium Chloride (Normal Saline) 1,000 mls @ 999 mls/hr IV ASDIRECTED [facility] Last Admin: 07/27/17 17:46 Dose: 999 mls/hr Ondansetron HCl (Zofran) 4 mg IVPUSH ONETIME ONE Stop: 07/27/17 15:41 Last Admin: 07/27/17 15:49 Dose: 4 mg - Exam General: Reports: Alert, Oriented HEENT: Reports: Pupils Equal, Pupils Reactive, EOMI, Mucous Membr. Moist/[place] Neck: Reports: Supple Lungs: Reports: Clear to Auscultation, Normal Respiratory Effort Cardiovascular: Reports: Regular Rate, Regular Rhythm GI/Abdominal Exam: Normal Bowel Sounds, Soft, Non-Tender, No Organomegaly, No Distention, No Abnormal Bruit, No Mass, Pelvis Stable, Other (pendulous abd.) Back Exam: Reports: Normal Inspection, Full Range of Motion Extremities: Normal Inspection, Normal Range of Motion, Non-Tender, No Pedal Edema, Normal Capillary Refill Skin: Reports: Warm, Dry, Intact Neurological: Reports: No New Focal Deficit Psy/Mental Status: Reports: Alert, Normal Affect, Normal Mood
== END 2017-07-28 18:50 | disposition home or self-care (01) ==
LOC: JP.ED 15:23 → JP.MS 19:30
PROVIDERS: ADMIT Internal Medicine; ATTEND Internal Medicine
DX: G89.29 Other chronic pain (principal); M54.5 Low back pain; I10 Essential (primary) hypertension; M10.9 Gout, unspecified; E66.9 Obesity, unspecified; Z79.899 Other long term (current) drug therapy
CPT/HCPCS: 36415; 74176; 76705; 80053; 81001; 83690; 84484; 84550; 85025; 86140; 96361; 96374; 96375; 96376; 99285; A9270; J1170; J2405; J7040

== ENCOUNTER 2018-11-16 09:02 | Day surgery (SDC) | payer OTHER ==
[2018-11-16] MEDS ORDERED: fentaNYL 100 MCG/2 ML SDV ONE (10:05)
[2018-11-16] MEDS ORDERED: Midazolam 1 MG/ML 2 ML SDV ONE (10:05)
[2018-11-16] MEDS ORDERED: Propofol 200 MG/20 ML SDV ONE ×2 (10:05→10:59)
[2018-11-16] MEDS ORDERED: Lactated Ringers 1,000 ML IV SCH (10:15)
[2018-11-16 11:51] VITALS: BP 138/64
--- NOTE | 2018-11-17 08:49 | OR ---
DATE OF PROCEDURE: 11/16/2018 PREOPERATIVE DIAGNOSES: History of tubular adenomas. POSTOPERATIVE DIAGNOSIS: 1. Two small transverse colon polyps. 2. History of tubular adenomas. PROCEDURE: Colonoscopy to the cecum with biopsy resection of proximal and mid transverse colon polyp. SURGEON: Maico Mendoza MD ANESTHESIA: IV anesthesia with monitored anesthesia care. INDICATION: This 62-year-old white male is here for a colonoscopy because of a history of colon polyps. These were tubular adenomas. He says his last colonoscopic exam was done 3 years ago. I counseled him for the procedure, including risks and alternatives. He gave his informed consent to proceed. DESCRIPTION OF PROCEDURE: The patient was placed in the left lateral decubitus position. IV anesthesia was administered by the Anesthesia Service. Time-out was held. A rectal exam was performed, which was unremarkable. The flexible video Olympus colonoscope was introduced through his anus, up his rectum, and out his colon all way to the cecum. Once the cecum was reached, the scope was slowly withdrawn, examining the mucosa throughout. In the proximal transverse colon, a small polyp was seen, which was removed with the biopsy forceps. Going a little more distally in the mid transverse colon, we saw another small polyp, which was removed with the biopsy forceps. These were both sent separately to the laboratory. The scope was withdrawn further with no other lesions noted. The scope was retroflexed in the rectum with the distal rectum appearing unremarkable. The scope was straightened and removed. He tolerated the procedure well. Maico Mendoza MD /[id number]
== END 2018-11-16 13:04 | disposition home or self-care (01) ==
LOC: JP.SDS 09:02
PROVIDERS: ATTEND Surgery
DX: Z12.11 Encounter for screening for malignant neoplasm of colon (principal); D12.3 Benign neoplasm of transverse colon; I10 Essential (primary) hypertension; E78.00 Pure hypercholesterolemia, unspecified; M54.5 Low back pain; Z86.010 Personal history of colon polyps
CPT/HCPCS: 45380; 88305; J2250; J2704; J3010; J7120

== ENCOUNTER 2020-04-25 03:05 | Emergency (ER) | payer OTHER ==
[2020-04-25] MEDS ORDERED: LORazepam 1 MG Tab PO ONE (03:33)
--- NOTE | 2020-04-25 03:34 | EDM.PDOC ---
ED HPI GENERAL MEDICAL PROBLEM - General Chief Complaint: Respiratory Problem Stated Complaint: SOB Time Seen by Provider: 04/25/20 03:28 Source of Information: Reports: Patient, RN Notes Reviewed History Limitations: Reports: No Limitations - History of Present Illness INITIAL COMMENTS - FREE TEXT/NARRATIVE: 64-year-old gentleman presents emergency department a complaint of shortness of breath, he states been short of breath last couple days denies any fever nausea vomiting cough or chest pain does admit to having some anxiety - Related Data Allergies Allergy/AdvReac Type Severity Reaction Status Date / Time No Known Allergies Allergy Verified 04/25/20 03:14 Home Meds: Home Meds allopurinoL [Zyloprim] 300 mg PO DAILY 08/02/14 [History] Lisinopril 20 mg PO DAILY 07/27/17 [History] Naproxen 500 mg PO BID 07/27/17 [History] tiZANidine [Zanaflex] 4 mg PO DAILY 07/27/17 [History] atorvaSTATin Calcium [Atorvastatin Calcium] 10 mg PO BEDTIME 11/15/18 [History] Past Medical History Cardiovascular History: Reports: Hypertension Gastrointestinal History: Reports: Colon Polyp Musculoskeletal History: Reports: Back Pain, Chronic - Infectious Disease History Infectious Disease History: Reports: Mumps Other Infectious Disease History: all info is lost - Past Surgical History GI Surgical History: Reports: Colonoscopy Social & Family History - Family History Family Medical History: No Pertinent Family History - Tobacco Use Tobacco Use Status *Q: Current Every Day Tobacco User Years of Tobacco use: 30 Packs/Tins Daily: 0.2 - Caffeine Use Caffeine Use: Reports: Coffee ED ROS GENERAL - Review of Systems Review Of Systems: See Below Constitutional: Reports: No Symptoms Respiratory: Reports: Shortness of Breath. Denies: Wheezing, Cough, Sputum Cardiovascular: Reports: Dyspnea on Exertion GI/Abdominal: Reports: No Symptoms ED EXAM, GENERAL - Physical Exam Exam: See Below Exam Limited By: No Limitations General Appearance: Anxious Respiratory/Chest: No Respiratory Distress, Lungs Clear, Normal Breath Sounds, No Accessory Muscle Use, Chest Non-Tender Cardiovascular: Regular Rate, Rhythm, No Murmur GI/Abdominal: Soft, Non-Tender Course - Vital Signs Last Recorded V/S: Last Vital Signs Temp 97.5 F 04/25/20 03:22 Pulse 81 04/25/20 03:22 Resp 20 04/25/20 03:22 BP 136/78 04/25/20 03:22 Pulse Ox 97 04/25/20 03:22 - Orders/Labs/Meds Orders: Active Orders 24 hr Category Date Time Status Chest 1V Frontal [CR] Stat Exams 04/25/20 03:32 Taken Labs: Laboratory Tests 04/25/20 04/25/20 04/25/20 Range/Units 03:42 03:42 03:42 WBC 9.6 (4.5-11.0) K/uL RBC 4.83 (4.30-5.90) M/uL Hgb 15.1 H D (12.0-15.0) g/dL Hct 44.7 (40.0-54.0) % MCV 93 (80-98) fL MCH 31 (27-31) pg MCHC 34 (32-36) % Plt Count 178 (150-400) K/uL Neut % (Auto) 60 (36-66) % Lymph % (Auto) 29 (24-44) % [place] % (Auto) 9 H (2-6) % Eos % (Auto) 1 L (2-4) % Baso % (Auto) 0 (0-1) % Sodium 144 (140-148) mmol/L Potassium 3.8 (3.6-5.2) mmol/L Chloride 106 (100-108) mmol/L Carbon Dioxide 23 (21-32) mmol/L Anion Gap 15.2 H (5.0-14.0) mmol/L BUN 16 (7-18) mg/dL Creatinine 0.8 (0.8-1.3) mg/dL Est Cr Clr Drug Dosing 96.32 mL/min Estimated GFR (MDRD) > 60 (>60) Glucose 97 (74-106) mg/dL Calcium 9.2 (8.5-10.1) mg/dL Total Bilirubin 0.4 (0.2-1.0) mg/dL AST 35 (15-37) U/L ALT 34 (12-78) U/L Alkaline Phosphatase 144 H D (46-116) U/L C-Reactive Protein 0.25 (0.0-0.3) mg/dL Total Protein 7.0 (6.4-8.2) g/dL Albumin 3.7 (3.4-5.0) g/dL Globulin 3.3 (2.3-3.5) g/dL Albumin/Globulin Ratio 1.1 L (1.2-2.2) Influenza Type A RNA Negative (NEGATIVE) RSV RNA (INAAT) Negative (NEGATIVE) Influenza Type B RNA Negative (NEGATIVE) SARS-CoV-2 RNA (MAKENNA) Negative (NEGATIVE) Meds: Medications Discontinued Medications Generic Name Dose Route Start Last Admin Trade Name Elizabeth PRN Reason Stop Dose Admin Lorazepam 1 mg 04/25/20 03:33 04/25/20 03:39 Ativan PO 04/25/20 03:34 1 mg ONETIME ONE Administration Departure - Departure Time of Disposition: 04:36 Disposition: Home, Self-Care 01 Condition: Fair Clinical Impression: Anxiety - Discharge Information Instructions: Managing Anxiety, Adult Referrals: PCP,None [Primary Care Provider] - Forms: ED Department Discharge Additional Instructions: Use the Ativan as needed when he becomes short of breath, please followup with your primary care provider in 3-5 days if not better, please call return to the emergency department with worsening of symptoms. Sepsis Event Note (ED) - Evaluation Sepsis Screening Result: No Definite Risk - Focused Exam Vital Signs: Vital Signs Temp Pulse Resp BP Pulse Ox 04/25/20 03:22 97.5 F 81 20 136/78 97 - My Orders Last 24 Hours: My Active Orders 04/25/20 03:32 Chest 1V Frontal [CR] Stat - Assessment/Plan Last 24 Hours: My Active Orders 04/25/20 03:32 Chest 1V Frontal [CR] Stat Plan: Assessment Acuity = acute Site and laterality = anxiety Etiology = generalized anxiety disorder Manifestations = none Location of injury = Home Lab values = CBC, CMP chest x-ray all within normal limits Covid was negative Plan Good improvement 1 mg Ativan prescription for Ativan 1 mg p.o. 3 times daily as needed total #10 follow-up primary care 3 to 5 days if not better This note was dictated using Chance (app) voice recognition software please call with any questions on syntax or grammar.
[2020-04-25 03:38] VITALS: BP 136/78; PULSE 81
[2020-04-25 04:23] LABS: CORONAVIRUS COVID-19 NAA NEGATIVE (NEGATIVE)
--- NOTE | 2020-04-25 08:49 | CR ---
CHEST: Portable 04/25/2020 at 3:53 AM CLINICAL HISTORY:Respiratory failure COMPARISON:2012 FINDINGS: The heart size, pulmonary vascularity and hilar structures are normal. No infiltrate effusion or pneumothorax is seen. There are atherosclerotic changes in the aorta. IMPRESSION: No acute cardiopulmonary process.
== END 2020-04-25 04:48 | disposition home or self-care (01) ==
LOC: JP.ED 03:05
DX: F41.9 Anxiety disorder, unspecified (principal); I10 Essential (primary) hypertension; Z72.0 Tobacco use; Z79.899 Other long term (current) drug therapy; Z20.822 Contact with and (suspected) exposure to COVID-19
CPT/HCPCS: 0241U; 36415; 71045; 80053; 85025; 86140; 99285; A9270; 99283

== ENCOUNTER 2021-05-28 18:14 | Emergency (ER) | payer OTHER ==
[2021-05-28] MEDS ORDERED: Sodium Chloride 0.9% 10 ML Syringe FLUSH PRN (18:21)
[2021-05-28] MEDS ORDERED: methylPREDNISolone Sodium Succinate 125 MG/2 ML SDV IVPUSH ONE (18:22)
[2021-05-28] MEDS ORDERED: EPINEPHrine 1 MG/ML SDV SUBCUT ONE (18:24)
[2021-05-28 21:11] VITALS: BP 130/64; PULSE 105
== END 2021-05-28 21:21 | disposition home or self-care (01) ==
LOC: JP.ED 18:14
DX: T78.3XXA Angioneurotic edema, initial encounter (principal); T46.4X5A Adverse effect of angiotensin-converting-enzyme inhibitors, initial encounter; I10 Essential (primary) hypertension; Z88.8 Allergy status to other drugs, medicaments and biological substances; Z79.899 Other long term (current) drug therapy
CPT/HCPCS: 36415; 36430; 86850; 86900; 86901; 96372; 96374; 99283; 99283-25; J0171; J2930; P9017

== ENCOUNTER 2021-05-29 06:35 | Emergency (ER) | payer OTHER ==
[2021-05-29] MEDS ORDERED: Sodium Chloride 0.9% 10 ML Syringe FLUSH PRN (06:42)
[2021-05-29] MEDS ORDERED: methylPREDNISolone Sodium Succinate 125 MG/2 ML SDV IVPUSH ONE (06:42)
[2021-05-29] MEDS ORDERED: EPINEPHrine 1 MG/ML SDV SUBCUT ONE (06:42)
[2021-05-29] MEDS ORDERED: Cetirizine 10 MG Tab PO ONE (07:02)
[2021-05-29 12:39] VITALS: BP 107/55; PULSE 98
== END 2021-05-29 13:34 | disposition home or self-care (01) ==
LOC: JP.ED 06:35
DX: T78.3XXA Angioneurotic edema, initial encounter (principal); T46.4X5A Adverse effect of angiotensin-converting-enzyme inhibitors, initial encounter; I10 Essential (primary) hypertension; Z88.8 Allergy status to other drugs, medicaments and biological substances; Z79.899 Other long term (current) drug therapy
CPT/HCPCS: 36415; 36430; 96372; 96374; 99283; 99283-25; A9270-GY; J0171; J2930; P9017

== ENCOUNTER 2022-11-12 18:11 | Emergency (ER) | payer OTHER ==
[2022-11-12 19:40] LABS: BASOPHILS ABSOLUTE AUTO 0.04 K/uL (0.00-0.10); BASOPHILS PERCENT AUTO 0.3 % (0.1-1.3); EOSINOPHILS ABSOLUTE AUTO 0.07 K/uL (0.00-0.40); EOSINOPHILS PERCENT AUTO 0.5 % (0.0-5.4); HEMATOCRIT 34.7 % (38.4-49.7); HEMOGLOBIN 11.3 g/dL (12.9-16.9); IMMATURE GRAN ABSOLUTE AUTO 0.11 K/uL (0.00-0.23); IMMATURE GRAN PERCENT AUTO 0.8 % (0.0-0.7); LYMPHOCYTES ABSOLUTE AUTO 1.69 K/uL (0.8-3.3); LYMPHOCYTES PERCENT AUTO 12.7 % (11.4-47.7); MEAN CORPUSCULAR HEMOGLOBIN 28.5 pg (31.6-35.5); MEAN CORPUSCULAR HGB CONC 32.6 g/dL (31.6-35.5); MEAN CORPUSCULAR VOLUME 87.4 fL (81.4-99.0); MONOCYTES ABSOLUTE AUTO 0.95 K/uL (0.20-0.90); MONOCYTES PERCENT AUTO 7.2 % (3.3-12.6); NEUTROPHILS ABSOLUTE AUTO 10.41 K/uL (1.0-7.6); NEUTROPHILS PERCENT AUTO 78.5 % (40.0-78.1); PLATELET COUNT,PLT 246 K/uL (130-375); RED BLOOD CELL COUNT 3.97 M/uL (4.14-5.76); WHITE BLOOD CELL COUNT,WBC 13.3 K/uL (3.2-11.0)
[2022-11-12 20:03] LABS: A/G RATIO 0.9 (1.2-2.2); ALANINE AMINOTRANSFERASE,ALT 19 U/L (12-78); ALBUMIN 3.1 g/dL (3.4-5.0); ALKALINE PHOSPHATASE 157 U/L (46-116); ASPARTATE AMNIOTRANSFERASE,AST 23 U/L (15-37); BILIRUBIN TOTAL 0.6 mg/dL (0.2-1.0); BLOOD UREA NITROGEN,BUN 8 mg/dL (7-18); C-REACTIVE PROTEIN 0.79 mg/dL (0.0-0.3); CALCIUM 8.6 mg/dL (8.5-10.1); CARBON DIOXIDE,CO2 27 mmol/L (21-32); CHLORIDE,CL 101 mmol/L (100-108); EST CRCL DRUG DOSING (CG) 75.03 mL/min; ESTIMATED GFR 83 mL/min (>60); GLUCOSE RANDOM 141 mg/dL (74-106); POTASSIUM,K 4.2 mmol/L (3.6-5.2); PROTEIN TOTAL,TP 6.6 g/dL (6.4-8.2); SODIUM,NA 136 mmol/L (140-148); TROPONIN I HIGH SENSITIVITY 4.9 pg/mL (<=60.3)
[2022-11-12 20:04] LABS: ANION GAP 12.2 mmol/L (5.0-14.0)
[2022-11-12] MEDS ORDERED: Iopamidol 612 MG/ML 100 ML Bottle IV ONE (20:50)
[2022-11-12] MEDS ORDERED: Sodium Chloride 0.9% 10 ML Syringe FLUSH ONE (20:50)
[2022-11-12] MEDS ORDERED: Sodium Chloride 0.9% 50 ML IV ONE (20:50)
[2022-11-12] MEDS ORDERED: fentaNYL 50 MCG/ML SDV IVPUSH ONE (22:30)
[2022-11-12] MEDS ORDERED: Naloxone 0.4 MG/ML SDV IVPUSH PRN (22:30)
[2022-11-13 02:07] VITALS: BP 154/80; PULSE 80
== END 2022-11-13 02:32 | disposition home or self-care (01) ==
LOC: JP.ED 18:11
DX: K59.00 Constipation, unspecified (principal); K80.50 Calculus of bile duct without cholangitis or cholecystitis without obstruction; F17.210 Nicotine dependence, cigarettes, uncomplicated; I10 Essential (primary) hypertension; E78.00 Pure hypercholesterolemia, unspecified; E66.9 Obesity, unspecified; Z79.899 Other long term (current) drug therapy; Z88.8 Allergy status to other drugs, medicaments and biological substances; Z68.41 Body mass index [BMI] 40.0-44.9, adult
CPT/HCPCS: 36415; 74177; 76705; 80053; 83690; 84484; 85025; 85379; 86140; 93005; 96374; 99284; J3010; J3490; Q9967

== ENCOUNTER 2022-11-14 06:24 | Emergency (ER) | payer OTHER ==
[2022-11-14] MEDS ORDERED: Sodium Chloride 0.9% 10 ML Syringe FLUSH PRN (07:21)
[2022-11-14] MEDS ORDERED: Ondansetron 4 MG/2 ML SDV IVPUSH ONE (07:22)
[2022-11-14] MEDS ORDERED: fentaNYL 100 MCG/2 ML SDV IVPUSH ONE (07:25)
[2022-11-14] MEDS ORDERED: Lactated Ringers 1,000 ML IV SCH (07:30)
[2022-11-14 08:01] LABS: BASOPHILS ABSOLUTE AUTO 0.05 K/uL (0.00-0.10); BASOPHILS PERCENT AUTO 0.3 % (0.1-1.3); EOSINOPHILS ABSOLUTE AUTO 0.07 K/uL (0.00-0.40); EOSINOPHILS PERCENT AUTO 0.5 % (0.0-5.4); HEMATOCRIT 36.4 % (38.4-49.7); HEMOGLOBIN 11.8 g/dL (12.9-16.9); IMMATURE GRAN ABSOLUTE AUTO 0.14 K/uL (0.00-0.23); IMMATURE GRAN PERCENT AUTO 0.9 % (0.0-0.7); LYMPHOCYTES ABSOLUTE AUTO 2.11 K/uL (0.8-3.3); LYMPHOCYTES PERCENT AUTO 14.2 % (11.4-47.7); MEAN CORPUSCULAR HEMOGLOBIN 28.4 pg (31.6-35.5); MEAN CORPUSCULAR HGB CONC 32.4 g/dL (31.6-35.5); MEAN CORPUSCULAR VOLUME 87.7 fL (81.4-99.0); MONOCYTES PERCENT AUTO 6.7 % (3.3-12.6); NEUTROPHILS PERCENT AUTO 77.4 % (40.0-78.1); PLATELET COUNT,PLT 229 K/uL (130-375); RED BLOOD CELL COUNT 4.15 M/uL (4.14-5.76); WHITE BLOOD CELL COUNT,WBC 14.9 K/uL (3.2-11.0)
[2022-11-14 08:23] LABS: ALANINE AMINOTRANSFERASE,ALT 23 U/L (12-78); ALBUMIN 3.3 g/dL (3.4-5.0); ALKALINE PHOSPHATASE 158 U/L (46-116); ASPARTATE AMNIOTRANSFERASE,AST 26 U/L (15-37); BILIRUBIN TOTAL 0.6 mg/dL (0.2-1.0); BLOOD UREA NITROGEN,BUN 9 mg/dL (7-18); CALCIUM 9.1 mg/dL (8.5-10.1); CARBON DIOXIDE,CO2 25 mmol/L (21-32); CHLORIDE,CL 100 mmol/L (100-108); CREATININE 1.1 mg/dL (0.8-1.3); EST CRCL DRUG DOSING (CG) 68.21 mL/min; ESTIMATED GFR 74 mL/min (>60); GLUCOSE RANDOM 122 mg/dL (74-106); POTASSIUM,K 3.8 mmol/L (3.6-5.2); PROTEIN TOTAL,TP 7.2 g/dL (6.4-8.2); SODIUM,NA 136 mmol/L (140-148); TROPONIN I HIGH SENSITIVITY 4.5 pg/mL (<=60.3)
[2022-11-14] MEDS ORDERED: HYDROmorphone 1 MG/ML Syringe IVPUSH ONE ×2 (08:31→09:47)
[2022-11-14 08:44] VITALS: BP 134/64; PULSE 72
[2022-11-14 08:55] LABS: A/G RATIO 0.9 (1.2-2.2); ANION GAP 14.8 mmol/L (5.0-14.0)
[2022-11-14] MEDS ORDERED: Alum Hydrox/Mag Hydrox/Simeth 15 ML, Lidocaine 2% 15 ML PO ONE ×2 (10:53)
== END 2022-11-14 12:00 | disposition home or self-care (01) ==
LOC: JP.ED 06:24
DX: K80.20 Calculus of gallbladder without cholecystitis without obstruction (principal); F17.210 Nicotine dependence, cigarettes, uncomplicated; I10 Essential (primary) hypertension; E78.00 Pure hypercholesterolemia, unspecified; E66.9 Obesity, unspecified; Z68.41 Body mass index [BMI] 40.0-44.9, adult; Z79.899 Other long term (current) drug therapy; Z88.8 Allergy status to other drugs, medicaments and biological substances
CPT/HCPCS: 36415; 80053; 83690; 84484; 85025; 93005; 96361; 96374; 96375; 96376; 99284; J1170; J2405; J3010; J3490; J7120

== ENCOUNTER 2022-11-17 08:19 | Day surgery (SDC) | payer OTHER ==
[2022-11-17] MEDS ORDERED: Lactated Ringers 1,000 ML IV SCH (09:30)
[2022-11-17] MEDS ORDERED: Pantoprazole 40 MG Vial IVPUSH ONE (10:09)
[2022-11-17 11:13] VITALS: BP 138/77; PULSE 85
== END 2022-11-17 11:39 | disposition home or self-care (01) ==
LOC: JP.SDS 08:19
PROVIDERS: ATTEND Surgery
DX: K29.80 Duodenitis without bleeding (principal); K26.9 Duodenal ulcer, unspecified as acute or chronic, without hemorrhage or perforation; I10 Essential (primary) hypertension; K80.20 Calculus of gallbladder without cholecystitis without obstruction; F41.9 Anxiety disorder, unspecified; F17.200 Nicotine dependence, unspecified, uncomplicated; Z88.6 Allergy status to analgesic agent
CPT/HCPCS: 43239; 87081; C9113; J7120

== ENCOUNTER 2022-12-30 06:38 | Day surgery (SDC) | payer OTHER ==
[2022-12-30] MEDS ORDERED: Lactated Ringers 1,000 ML IV SCH (07:15)
[2022-12-30] MEDS ORDERED: fentaNYL 50 MCG/ML SDV ONE (07:21)
[2022-12-30] MEDS ORDERED: Propofol 200 MG/20 ML SDV ONE (07:21)
[2022-12-30 10:17] VITALS: BP 104/59; PULSE 82
== END 2022-12-30 10:20 | disposition home or self-care (01) ==
LOC: JP.SDS 06:38
PROVIDERS: ATTEND Student in an Organized Health Care Education/Training Program
DX: K26.9 Duodenal ulcer, unspecified as acute or chronic, without hemorrhage or perforation (principal); K29.50 Unspecified chronic gastritis without bleeding; I10 Essential (primary) hypertension; E78.00 Pure hypercholesterolemia, unspecified; Z88.8 Allergy status to other drugs, medicaments and biological substances; Z87.891 Personal history of nicotine dependence
CPT/HCPCS: 43239; 88305; J2704; J3010; J7120

== ENCOUNTER 2023-03-10 07:12 | Day surgery (SDC) | payer OTHER ==
[2023-03-10] MEDS ORDERED: Propofol 200 MG/20 ML SDV ONE (07:21)
[2023-03-10] MEDS ORDERED: fentaNYL 100 MCG/2 ML SDV ONE (07:22)
[2023-03-10] MEDS ORDERED: Lactated Ringers 1,000 ML IV SCH (08:00)
[2023-03-10 09:34] VITALS: PULSE 63
[2023-03-10 09:47] VITALS: BP 105/56
== END 2023-03-10 09:59 | disposition home or self-care (01) ==
LOC: JP.SDS 07:12
PROVIDERS: ATTEND Student in an Organized Health Care Education/Training Program
DX: K29.70 Gastritis, unspecified, without bleeding (principal); K57.10 Diverticulosis of small intestine without perforation or abscess without bleeding; I10 Essential (primary) hypertension; E66.9 Obesity, unspecified; Z68.41 Body mass index [BMI] 40.0-44.9, adult
CPT/HCPCS: 43239; 88305; J2704; J3010; J7120